=== PATIENT | female | born 1975 | race Caucasian/White ===

== ENCOUNTER 2021-04-05 10:30 | Emergency (ER) | payer MEDICARE, MEDICAID, SELFPAY ==
[2021-04-05 10:40] VITALS: BP 122/76; PULSE 113; RESP 16; TEMP 37.2; O2SAT 99; BMI 33.5
[2021-04-05 10:55] LABS: COVID-19 Test Positive (Negative)
--- NOTE | 2021-04-05 11:05 | ED_ITS ---
HPI - URI/Sore Throat General Chief Complaint: Upper Respiratory Symptoms Stated Complaint: cough congestion son is covid + Time Seen by Provider: 04/05/21 11:03 Source: patient Mode of arrival: ambulatory Limitations: no limitations History of Present Illness HPI Narrative: 46-year-old female on no daily medications who is otherwise healthy presents with symptoms of dry cough, headache, body aches, and low-grade fevers had started yesterday. The patient's son is diagnosed COVID positive and lives with patient. Patient has no dyspnea, no chest pain, no nausea, no vomiting, no sore throat or runny nose. MD elicited complaint: cough Onset (ago): day(s) (2) Severity: mild Description of mucous: clear Able to tolerate fluids by mouth: Yes Exacerbating factors: nothing Relieving factors: OTC cold medicine Context: sick contacts Associated symptoms: myalgias, headache and cough Treatments prior to arrival: none Related Data Previous Rx's Medication Instructions Recorded albuterol sulfate 90 mcg/actuation 2 puff INHALATION Q4-6H PRN #8.5 g 04/05/21 aerosol inhaler Allergies Allergy/AdvReac Type Severity Reaction Status Date / Time No Known Allergies Allergy Unverified 01/18/20 17:30 Review of Systems Constitutional: Constitutional: Reports body ache(s), Denies chills, Reports fatigue, Denies fever(s), Reports headache(s), Reports malaise and Denies weakness Eyes: Eyes: Denies diplopia ENT: Denies vertigo, Denies dizziness, Denies otalgia, Reports headache(s), Denies mouth pain, Denies post nasal drip, Denies sinus pain, Denies sinus pressure, Denies sore throat and Denies throat swelling Cardiovascular: Cardiovascular: Denies chest pain, Denies syncope, Denies leg edema, Denies lightheadedness, Denies Loss of Consciousness, Denies palpitations and Denies dyspnea Respiratory: Respiratory: Denies chest congestion, Reports cough, Denies pain on inspiration, Denies pain with cough and Denies dyspnea Gastrointestinal: Gastrointestinal: Denies abdominal pain, Denies hematochezia, Denies constipation, Denies diarrhea and Denies vomiting Musculoskeletal: Musculoskeletal: Reports no additional musculoskeletal complaints and Denies back pain Integumentary/Breasts: Skin/Breast: Denies erythema Neurologic: Denies confusion, Denies vertigo, Denies dizziness, Denies syncope, Reports headache(s) and Denies weakness Psychiatric: Psychiatric: Denies anxiety, Denies confusion and Denies depression Endocrine: Endocrine: Reports fatigue and Denies palpitations Allergic/Immunologic: Allergic/Immunologic: Denies throat swelling PMFSH Social History Social History Advance Directives: No Advance Directives Information Provided: Yes Patient : No Physical Exam Vital Signs: Vital Signs: Last Vital Signs Temp 98.9 F 04/05/21 10:40 Pulse 113 H 04/05/21 10:40 Resp 16 04/05/21 10:40 BP 122/76 04/05/21 10:40 Pulse Ox 99 04/05/21 10:40 BMI result Body Mass Index 33.5 Const: General: No confusion Nutritional Appearance: well nourished Orientation/consciousness: No confusion Limitations: no limitations HENMT: Head: Yes normal to inspection, Yes normocephalic and Yes atraumatic Ears: hearing grossly normal bilaterally, external ears normal, TM's normal bilaterally and EAC's normal General nose exam: Normal external nose present Face and sinus: Yes normal facial exam and Yes sinuses nontender Mouth: Normal oral and palatal mucosa present Throat: Yes posterior oropharynx normal Eyes: Conjunctivae: conjunctivae normal Pupils: Equal, round and reactive pupils present EOM: EOMs intact bilaterally Neck: Neck: Yes full ROM, Yes no lymphadenopathy and Yes supple Resp: Effort & Inspection: normal respiratory effort and able to speak in complete sentences Auscultation: clear to auscultation bilaterally, no crackles, no rales, no rhonchi and no wheezes Cardio: Rate: regular rate Rhythm: regular rhythm Heart sounds: S1 normal heart sound present and S2 normal heart sound present GI: Inspection: Yes normal to inspection Palpation (GI): Soft to palpation, nontender, no guarding and not rigid Percussion: Yes normal to percussion Auscultation: normal bowel sounds Skin: General skin exam: no rashes or lesions noted Neuro: General: No confusion Cranial nerves: Yes Equal, round and reactive pupils present Extrem: General: Yes normal to inspection and Yes full ROM Psych: Appearance: grossly normal Affect: normal affect Attitude: cooperative Thought process: Normal thought process present Course Course Course Narrative: 46-year-old female presents for 2 days of dry cough, headache, body aches. Patient is COVID positive. On exam, patient is mildly ill- appearing, mildly tachycardic. Lungs clear to auscultation bilaterally, ENT exam benign, belly soft nontender. Counseled patient she should quarantine for 10 days, drink plenty of fluids, Tylenol, rest. Prescribed albuterol inhaler, all questions were answered to patient's satisfaction. MDM - URI/Sore Throat Lab Data Labs: Lab Results 04/05/21 Range/Units 10:43 COVID-19 (ANDREW) Positive A (Negative) COVID-19 Clin Com See Note Discharge Plan Discharge Clinical Impression: COVID-19 Patient Disposition: Home, Self-Care Instructions: COVID-19 (Coronavirus Disease 2019) (ED) Additional Instructions: Please stay home in quarantine for the next 10 days. Please read the instructions given in your discharge packet on how to manage your COVID symptoms. Please use your albuterol inhaler, 2 puffs every 4 hours for cough. Please drink 2-3 L of water a day, and take Tylenol. You may take 1000 mg of Tylenol every 8 hours, not to exceed 3000 mg in 24 hours. Please return to emergency room P of shortness of breath, chest pain, or any other concerning symptoms Prescriptions: New albuterol sulfate 90 mcg/actuation HFA aerosol inhaler 2 puff inhalation Q4-6H PRN (Reason: shortness of breath or wheezing) Qty: 8.5 RF: 0
[2021-04-05 14:25] VITALS: O2SAT 96
[2021-04-05] MEDS: Albuterol Sulfate 90 MCG 8 GM INHALER 2 PUFF INHALE (14:25)
== END 2021-04-05 15:34 | disposition home or self-care (01) ==
PROVIDERS: Emergency Provider Emergency Medicine; PCP Internal Medicine
DX: U07.1 COVID-19 (principal)
CPT/HCPCS: 36415; 87635; 94640; 99282; 99284

== ENCOUNTER 2021-08-03 16:23 | Emergency (ER) | payer OTHER, SELFPAY ==
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
[2021-08-03 17:18] VITALS: BP 136/82; PULSE 87; TEMP 36.6; O2SAT 98; BMI 32.9
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
== END 2021-08-03 19:48 | disposition still patient (30) ==
PROVIDERS: Emergency Provider Emergency Medicine Emergency Medical Services; PCP Internal Medicine
DX: S16.1XXA Strain of muscle, fascia and tendon at neck level, initial encounter (principal); M54.50 Low back pain, unspecified; M54.2 Cervicalgia; V43.62XA Car passenger injured in collision with other type car in traffic accident, initial encounter; Y93.9 Activity, unspecified; Y92.410 Unspecified street and highway as the place of occurrence of the external cause; Y99.9 Unspecified external cause status; Z79.899 Other long term (current) drug therapy
CPT/HCPCS: 72100; 99283

== ENCOUNTER 2023-10-29 12:08 | Emergency (ER) | payer OTHER, SELFPAY ==
--- NOTE | ~2023-10-29 | XR_ITS ---
EXAMINATION: XR HAND/WRIST, RIGHT CLINICAL INFORMATION: Pain. Injury. COMPARISON: Previous x-ray from 2017 TECHNIQUE: PA, lateral, and oblique views of the right hand and wrist. FINDINGS: The bones and soft tissues are normal. No fracture. Alignment is anatomic. Joint spaces are maintained. No erosions or soft tissue calcifications. XR/XR hand wrist RT IMPRESSION: Normal radiographs of the hand and wrist.
[2023-10-29 12:17] VITALS: BP 123/83; PULSE 82; RESP 18; TEMP 36.7; O2SAT 98; BMI 33.3
--- NOTE | 2023-10-29 12:22 | ED_ITS ---
HPI - General Adult General Chief complaint: Extremity Injury, Upper Stated complaint: fall l hand inj Time Seen by Provider: 10/29/23 12:56 Source: patient Mode of arrival: ambulatory Limitations: language barrier ( Persian-speaking academic support specialist utilized) History of Present Illness HPI narrative: patient is a 48-year-old female right-hand dominant whopresents emergency department for evaluation pain to the base of the right thumb with swelling and ecchymosis. She reports yesterday after taking a shower she slipped and fell on an outstretched hand resulting in pain to this area. She denies any head strike or loss of consciousness. She states she is unable to grab objects or functionally use pincer grasp due to the pain Related Data Previous Rx's ?Medication ?Instructions ?Recorded albuterol sulfate 90 mcg/actuation 2 puff inhalation Q4-6H PRN 04/05/21 aerosol inhaler shortness of breath or wheezing #8.5 grams cyclobenzaprine 10 mg tablet 10 mg PO TID PRN muscle spasm #10 08/03/21 tabs naproxen 500 mg tablet 500 mg PO BID PRN pain #20 tabs 08/03/21 Allergies Allergy/AdvReac Type Severity Reaction Status Date / Time No Known Allergies Allergy Verified 10/29/23 12:24 Review of Systems Review of Systems: Yes all other systems are reviewed and are negative PMFSH Past Medical History Attestation statement: The following information was validated with the patient. Source: old records reviewed Social History Social History Advance Directives: No Advance Directives Information Provided: No Do you have a plan to hurt others: No Plan Physical Exam ED Vital Signs: Vital Signs - 24 hr 10/29/23 12:17 Temperature 98.1 F Pulse Rate 82 Respiratory Rate 18 Blood Pressure 123/83 Pulse Oximetry 98 Oxygen Delivery Method Room Air BMI result Body Mass Index 33.3 Appearance: Alert.?Oriented to person, place and time. No acute distress.?Normal affect. Neck: Normal inspection.? Neck supple.?? CVS: Heart sounds normal. Normal heart rate and rhythm.? Pulses normal.?? Respiratory: No respiratory distress.? Lung sounds clear to auscultation bilaterally?? Skin: Skin warm and dry.? Normal skin color.? Extremities: tenderness upon palpation of the right anatomical snuffbox, localized edema to the base of the thumb along the palmar aspect with ecchymosis, decreased range of motion with flexion-extension of the wrist, inability to adduct the 2nd and 3rd digit to the thumb Neuro: Moves all extremities spontaneously. Sensation intact bilaterally. Ambulates with normal steady gait. Course Course Course Narrative: RME performed by Bridgette Hernandez PA-C. Patient is a 48 year old assigned female at presenting to the emergency department with right hand/wrist pain. Patient states that she was finishing her shower yesterday, slipped, and fell. Landing on her outstretched right upper extremity. Detailed physical exam and review of systems are deferred to the occupational therapy manager. Imaging ordered. Patient placed back in the waiting room pending room availability and results. Medical Decision Making Medical Decision Making MDM Narrative: patient is a 48-year-old female who presents emergency department for evaluation of traumatic right hand /wrist pain as per HPI. Has localized pain swelling and ecchymosis to the base of the thumb and over the anatomical snuffbox with decreased range of motion as per PE portion of this note. XR was obtained and is without evidence of acute fracture at this time. Given the mechanism of injury and localization of pain I have concern for potential scaphoid fracture versus sprain she was placed in a thumb spica, advised outpatient follow-up for repeat XR imaging should she continued to be symptomatic. Discussed conservative treatment, worrisome signs and symptoms that would warrant re-evaluation in the emergency department. All questions answered. Stable for discharge Differential Diagnosis Differential Diagnoses: The differential diagnosis associated with the presentation includes ( see narrative above) Independent Interpretation I performed an independent interpretation of an: Plain X-Ray ( see narrative above) Radiology Impression Discussion of test interpretation with radiology: I have reviewed the radiologist's reading. Radiologist Impression: XR/XR hand wrist RT IMPRESSION: Normal radiographs of the hand and wrist. Prescription Management I considered prescription management with: Pain Medication Discharge Plan Discharge Clinical Impression: Sprain of right wrist Qualifiers: Encounter type: initial encounter Qualified Code(s): S63.501A - Unspecified sprain of right wrist, initial encounter Patient Disposition: Home, Self-Care Instructions: Wrist Injury (ED), R.I.C.E. Treatment (ED) Additional Instructions: wear the wrist splint as provided. if your pain improves the swelling resolves and your able to move your wrist/ hand/fingers without difficulty you may stop wearing brace. Apply ice for 10-15 minutes 3-4 times daily. You can take ibuprofen 200 mg, 3 tablets (600mg) every 6-8 hours as needed for pain, in addition to Tylenol 500 mg, 2 tablets (1,000mg) every 4-6 hours as needed for pain, but not to exceed 3 doses daily (3,000mg).? Contact your primary care doctor's office today to schedule a follow-up within the next week. If you continue to have pain, swelling, they may consider repeating an x-ray to check for a scaphoid fracture. you may return to emergency department any new or worsening symptoms or concerns Prescriptions: No Action albuterol sulfate 90 mcg/actuation HFA aerosol inhaler 2 puff inhalation Q4-6H PRN (Reason: shortness of breath or wheezing) Qty: 8.5 0RF cyclobenzaprine 10 mg tablet 10 mg PO TID PRN (Reason: muscle spasm) Qty: 10 0RF naproxen 500 mg tablet 500 mg PO BID PRN (Reason: pain) Qty: 20 0RF Referrals: Carter Gomez III, MD [Primary Care Provider] - Print Language: Persian
[2023-10-29 14:05] VITALS: BP 123/83; PULSE 82; RESP 18; TEMP 36.7; O2SAT 98
== END 2023-10-29 14:09 | disposition home or self-care (01) ==
PROVIDERS: Emergency Provider Emergency Medicine; PCP Internal Medicine
DX: S63.501A Unspecified sprain of right wrist, initial encounter (principal); M79.641 Pain in right hand; M25.531 Pain in right wrist; W18.2XXA Fall in (into) shower or empty bathtub, initial encounter; Y93.E1 Activity, personal bathing and showering; Y92.002 Bathroom of unspecified non-institutional (private) residence as the place of occurrence of the external cause; Y99.8 Other external cause status
CPT/HCPCS: 73110; 73130; 99283

== ENCOUNTER 2023-11-03 11:21 | Emergency (ER) | payer OTHER, SELFPAY ==
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
[2023-11-03 11:42] VITALS: BP 151/96; PULSE 92; RESP 16; TEMP 35.9; O2SAT 98; BMI 33.3
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
[2023-11-03] MEDS: Cyclobenzaprine HCl 5 MG TABLET PO (15:09)
[2023-11-03 15:11] VITALS: BP 137/89; PULSE 79; RESP 16; TEMP 36.3; O2SAT 99
[2023-11-03 16:04] VITALS: BP 137/89; PULSE 79; RESP 16; TEMP 36.3; O2SAT 99
== END 2023-11-03 16:05 | disposition home or self-care (01) ==
PROVIDERS: Emergency Provider Emergency Medicine; PCP Internal Medicine
DX: S16.1XXA Strain of muscle, fascia and tendon at neck level, initial encounter (principal); V43.52XA Car driver injured in collision with other type car in traffic accident, initial encounter; Y93.9 Activity, unspecified; Y92.410 Unspecified street and highway as the place of occurrence of the external cause; Y99.9 Unspecified external cause status; R51.9 Headache, unspecified; M54.50 Low back pain, unspecified; M54.2 Cervicalgia
CPT/HCPCS: 70450; 71045; 72100; 72125; 99283; 99284